=== PATIENT | male | born 1970 | race African-American/Black ===

== ENCOUNTER 2020-08-30 17:17 | Emergency (ER) | payer OTHER, SELFPAY ==
[~2020-08-30 17:17] MED LIST: Iopamidol-370 76% 500 ML 1 ML ONE
[2020-08-30 18:06] LABS: #Basophils 0.1 thou/uL (0.0-0.2); #Eosinphils 0.1 thou/uL (0.0-0.7); #Lymphocytes 2.5 thou/uL (1.20-3.40); #Monocytes 1.2 thou/uL (0.11-0.59); #Neutrophils 4.8 thou/uL (1.40-6.50); %Basophils 0.7 % (0.0-1.0); %Eosinophils 1.3 % (0.0-10.0); %Monocytes 14.1 % (0.0-10.0); %Neutrophils 54.9 % (42.0-75.0); Hemoglobin 14.5 g/dL (14.0-18.0); Mean Corpuscular Hemoglobin 31.2 pg (27.0-31.0); Mean Platelet Volume 6.4 fL (7.4-10.4); Platelet Count 268 thou/uL (130-400); RBC Distribution Width 11.3 % (11.5-14.5); Red Blood Cell (RBC) Count 4.65 mill/uL (4.70-6.10); White Blood Cell (WBC) Count 8.8 thou/uL (4.8-10.8)
[2020-08-30 18:26] LABS: ALT (SGPT) 34 U/L (8-55); AST (SGOT) 30 U/L (5-34); Albumin 3.8 g/dL (3.5-5.0); Alkaline Phosphatase 73 U/L (40-110); Anion Gap 12 mmol/L (10-20); BUN (Urea Nitrogen) 10 mg/dL (8.9-20.6); Bilirubin, Total 0.9 mg/dL (0.2-1.2); Calc. Creatinine Clearance 0 mL/min (70-130); Calcium 9.1 mg/dL (7.8-10.44); Carbon Dioxide 29 mmol/L (22-29); Chloride 101 mmol/L (98-107); Globulin 3.9 g/dL (2.4-3.5); Glucose 100 mg/dL (70-105); Potassium 4.4 mmol/L (3.5-5.1); Protein, Total 7.7 g/dL (6.0-8.3); Sodium 138 mmol/L (136-145)
[2020-08-30] MEDS ORDERED: Acetaminophen 500 MG TAB ONE (19:37)
[2020-08-30 20:30] LABS: Bacteria/HPF 2+ HPF (None Seen); Bilirubin Negative (Negative); Blood, Urine 2+ (Negative); Clarity Turbid (Clear); Glucose, Urine (Dipstick) Normal (Negative); Ketone, Urine Negative (Negative); Leukocyte 500 Leu/uL (Negative); Nitrite Negative (Negative); Protein, Urine (Dipstick) 30 mg/dL (Neg-Trace); RBC/HPF 21-50 HPF (0-3); Specific Gravity, Urine 1.012 (1.002-1.036); Squamous Epithelial None Seen HPF (0-3); Urobilinogen Normal mg/dL (Less than 2); WBC/HPF Greater than 50 HPF (0-3); pH, Urine 5.5 (5.0-9.0)
--- NOTE | 2020-08-30 21:40 | CT ---
CT abdomen and pelvis: 08/30/2020 HISTORY: Dysuria, fever, hematuria, pain TECHNIQUE: Axial CT imaging at 5 mm intervals from the lung bases through the pubic symphysis with IV contrast. Coronal and sagittal reformatted imaging obtained. FINDINGS: The visualized lung bases appear unremarkable. No free intraperitoneal air or fluid. The liver, gallbladder, spleen, pancreas, adrenal glands, and kidneys demonstrate no acute findings. Evaluation of the bowel is limited without oral contrast media. The urinary bladder demonstrates mild wall thickening, a nonspecific finding. The prostate gland is not well assessed on this examination. There is mild hypodensity of the prostate gland posteriorly on the left which could pote ntially signify prostatitis in the proper clinical setting. A generalized paucity of bowel gas further limits assessment of the bowel. The appendix appears withi n normal limits. The vascular structures of the abdomen/pelvis appear patent. No discrete abdominal or pelvic adenopat hy. No acute osseous abnormality is seen. IMPRESSION: Mild prominence of the urinary bladder wall which could signify underdistention or inflam matory change. Correlation with urinalysis advised. The prostate gland appears slightly heterogeneous, prominent, and hypodense. This could be on the bas is of prostatitis in the proper clinical setting.
[2020-08-30] MEDS ORDERED: cefTRIAXone\\ROCEPHIN 1 GM VIAL ONE (21:49)
[2020-08-30] MEDS ORDERED: Ketorolac Tromethamine 30 MG/ML VIAL ONE (21:51)
== END 2020-08-30 23:12 | disposition home or self-care (01) ==
LOC: ERS 17:17
DX: N39.0 Urinary tract infection, site not specified (principal); F17.210 Nicotine dependence, cigarettes, uncomplicated
CPT/HCPCS: 36415; 74177; 80053; 81003; 81015; 83690; 85025; 87040; 87077; 87086; 87149; 87186; 96365; 96375; J0696; J1885; Q9967

== ENCOUNTER 2023-05-03 22:46 | Emergency (ER) | payer SELFPAY ==
[2023-05-03 23:15] LABS: #Basophils 0.1 thou/uL (0.0-0.2); #Eosinphils 0.4 thou/uL (0.0-0.7); #Monocytes 0.5 thou/uL (0.11-0.59); #Neutrophils 1.1 thou/uL (1.40-6.50); %Basophils 1.6 % (0.0-1.0); %Eosinophils 7.3 % (0.0-10.0); %Lymphocytes 58.8 % (21.0-51.0); %Monocytes 10.3 % (0.0-10.0); %Neutrophils 21.6 % (42.0-75.0); Hematocrit 40.2 % (42.0-52.0); Hemoglobin 14.4 g/dL (14.0-18.0); Mean Corpuscular HGB CONC 35.8 g/dL (32.0-36.0); Mean Corpuscular Hemoglobin 31.5 pg (27.0-31.0); Mean Platelet Volume 9.1 fL (7.4-10.4); Platelet Count 151 10x3/uL (130-400); RBC Distribution Width 11.7 % (11.5-14.5); Red Blood Cell (RBC) Count 4.57 mill/uL (4.70-6.10); White Blood Cell (WBC) Count 5.1 10x3/uL (4.8-10.8)
[2023-05-03 23:40] LABS: ALT (SGPT) 48 U/L (8-55); AST (SGOT) 38 U/L (5-34); Alkaline Phosphatase 70 U/L (40-110); Anion Gap 12 mmol/L (10-20); BUN (Urea Nitrogen) 11 mg/dL (8.4-25.7); Bilirubin, Total 0.7 mg/dL (0.2-1.2); Calc. Creatinine Clearance 0 mL/min (70-130); Calcium 8.9 mg/dL (7.8-10.44); Carbon Dioxide 27 mmol/L (22-29); Chloride 104 mmol/L (98-107); Estimated GFR 96; Globulin 3.5 g/dL (2.4-3.5); Glucose 106 mg/dL (70-105); Lipase 36 U/L (8-78); Potassium 3.8 mmol/L (3.5-5.1); Protein, Total 7.5 g/dL (6.0-8.3); Sodium 139 mmol/L (136-145)
[2023-05-03 23:44] LABS: Troponin I Less than 0.010 ng/mL (< 0.028)
[2023-05-04 03:14] LABS: Troponin I Less than 0.010 ng/mL (< 0.028)
== END 2023-05-04 03:32 | disposition home or self-care (01) ==
LOC: ERS 22:46
DX: R07.89 Other chest pain (principal); F17.210 Nicotine dependence, cigarettes, uncomplicated
CPT/HCPCS: 36415; 71045; 80053; 83690; 84484; 85025; 93005